=== PATIENT | female | born 1990 | race Two or more races ===

== ENCOUNTER 2024-08-08 23:48 | Emergency (ER) | payer BC, MEDICAID ==
[~2024-08-08] VITALS: Ht 167.6 cm; Wt 72.0 kg
[2024-08-08 23:50] VITALS: BP 106/73; PULSE 81; RESP 16; O2SAT 98
== END 2024-08-09 04:25 | disposition left against medical advice (07) ==
LOC: ER 23:48 → EDBD 23:48 → ER 08-09 04:25
DX: M79.601 Pain in right arm (principal); S80.812A Abrasion, left lower leg, initial encounter; Z53.21 Procedure and treatment not carried out due to patient leaving prior to being seen by health care provider; V89.2XXA Person injured in unspecified motor-vehicle accident, traffic, initial encounter; Y93.89 Activity, other specified; Y92.415 Exit ramp or entrance ramp of street or highway as the place of occurrence of the external cause; Y99.8 Other external cause status